=== PATIENT | male | born 1980 | race Two or more races ===

== ENCOUNTER 2018-01-07 09:58 | Emergency (ER) | payer OTHER ==
[~2018-01-07] VITALS: Ht 170.2 cm; Wt 74.8 kg
[2018-01-07 10:18] VITALS: BP 126/79
[2018-01-07] MEDS ORDERED: TORADOL ONE (10:53)
[2018-01-07] MEDS ORDERED: TORADOL IM ONE (11:00)
--- NOTE | 2018-01-07 11:09 | DIREP ---
PROCEDURE:CHEST 2 VIEWS COMPARISON:None. INDICATIONS:right costochondral pain after cough FINDINGS: LUNGS/PLEURA:No significant pulmonary parenchymal abnormalities. No effusions. VASCULATURE:Normal. Unremarkable pulmonary vasculature. CARDIAC:Normal. No cardiac silhouette abnormality or cardiomegaly. MEDIASTINUM:Normal. No visible mass or adenopathy. BONES:Normal. No fracture or visible bony lesion. OTHER:Negative. CONCLUSION:Normal examination. Dictated by: Dallin Villanueva M.D. on 01/07/2018 at 11:07 AM
--- NOTE | 2018-01-07 11:13 | ER.PDOC ---
General Chief Complaint: Chest Pain-Non Cardiac Nature Stated Complaint: RIGHT SIDE SHOULDER/CHEST PAIN Time seen by MD: 10:40 Source: patient Exam Limitations: no limitations History of Present Illness Initial Comments "sudden onset right chest pain after coughing-hurts to move or take a deep breath-I had the same thing last year and they diagnosed me with costochondritis" Timing/Duration: 24 hours Severity/Quality: moderate, sharp, stabbing Radiation: no radiation Activities at Onset: other (coughing forcefully) Prior CP/Workup: no Prior Cardiac Workup Nitro Today/Relief: No Nitro Taken Today Aspirin Today: No Aspirin Today Associated Symptoms: cough Prior symptoms/Treatment: Similar symptoms previous Allergies: Coded Allergies: No Known Allergies (Unverified , 01/07/18) Home Meds No Active Prescriptions or Reported Meds Past Medical History Medical History: no pertinent history Surgical History: no surgical history Social History Smoking: non-smoker Alcohol Use: occassionally Drug Use: none Constitutional: denies no symptoms reported, denies see HPI, denies chills, denies diaphoresis, denies fever, denies malaise, denies weakness, denies other EENTM: denies no symptoms reported, denies see HPI, denies eye pain, denies blurred vision, denies tearing, denies double vision, denies ear pain, denies ear discharge, denies nose pain, denies nose congestion, denies throat pain, denies throat swelling, denies mouth pain, denies mouth swelling, denies other Respiratory: cough; denies orthopnea, denies shortness of breath, denies SOB with exertion, denies SOB at rest, denies stridor, denies wheezing Cardiovascular: denies no symptoms reported, denies see HPI, denies chest pain , denies edema, denies irregular heart rate, denies lightheadedness, denies palpitations, denies syncope, denies other Gastrointestinal: denies no symptoms reported, denies see HPI, denies abdomen distended, denies abdominal pain, denies blood streaked bowels, denies constipated, denies diarrhea, denies difficulty swallowing, denies nausea, denies poor appetite, denies poor fluid intake, denies rectal bleeding, denies vomiting, denies other Musculoskeletal: muscle pain Skin: denies no symptoms reported, denies see HPI, denies change in color, denies change in hair/nails, denies dryness, denies lesions, denies lumps, denies rash, denies other Physical Exam General Appearance: No Apparent Distress, WD/WN HEENT: PERRL/EOMI, Normal ENT Inspection, TMs Normal, Pharynx Normal Neck: Non-Tender, Full Range of Motion, Supple, Normal Inspection Respiratory: lungs clear, normal breath sounds, no respiratory distress, no accessory muscle use, other (right costochondral tenderness exactly reproduces his pain) Cardiovascular: Normal Peripheral Pulses, Regular Rate, Rhythm, No Edema, No Gallop, No JVD, No Murmur Gastrointestinal: Normal Bowel Sounds, No Organomegaly, No Pulsatile Mass, Non Tender, Soft Rectal: Normal Exam Extremities: Normal Range of Motion, Non-Tender, Normal Inspection, No Pedal Edema, No Calf Tenderness, Normal Capillary Refill Neurologic/Psychiatric: site safety coordinator II-XII NML as Tested, No Motor/Sensory Deficits, Alert, Normal Mood/Affect, Oriented x 3 Skin: Normal Color, Warm/Dry Lymphatic: No Adenopathy Results/Orders Results/Orders Administered Medications Medications (Trade) Dose Ordered Sig/Howard Route PRN Reason Start Time Stop Time Status Last Admin Dose Admin Ketorolac Tromethamine (Toradol) 60 mg OT ONCE IM 01/07/18 11:00 01/07/18 11:01 DC 01/07/18 10:57 EKG/XRAY/CT/US XRAY: chest (NAD) Departure Time of Disposition: 11:26 Disposition: 01 HOME, SELF-CARE Impression: Primary Impression: Tenderness of chest wall Condition: Stable Patient Instructions: Chest Wall Pain Referrals: PCP,UNKNOWN (PCP) PRIMARY CARE PROVIDER Additional Instructions: Take advil or aleve or tylenol as needed for pain Scripts No Active Prescriptions or Reported Meds Comments see your family doctor in 2-3 days for recheck return to ER if worse Duration or Time Spent with Pa: 15 SADIE CHEEK MD Jan 07, 2018 11:13
[2018-01-07 11:48] VITALS: BP 126/79
== END 2018-01-07 11:47 | disposition home or self-care (01) ==
LOC: ER 09:58
DX: R07.89 Other chest pain (principal); R05 Cough
CPT/HCPCS: 71046; 96372; 99284; J1885